=== PATIENT | male | born 1965 | race Caucasian/White ===

== ENCOUNTER 2020-10-06 10:19 | Day surgery (SDC) | payer MEDICAID ==
[~2020-10-06] VITALS: Ht 182.9 cm; Wt 92.0 kg
[~2020-10-06 10:19] MED LIST: BUPIVACAINE/PF 0.5% ONE; EPINEPHRINE 1 MG/ML, 1ML ONE; LIDOCAINE/PF 1%, 30ML ONE
[2020-10-06] MEDS ORDERED: CHLORHEXIDINE 15 ML UDC MM STA (10:30)
[2020-10-06] MEDS ORDERED: LACTATED RINGERS 1,000 ML IV SCH (10:30)
[2020-10-06 10:36] VITALS: BP 127/81
[2020-10-06] MEDS ORDERED: DEXAMETHASONE 4 MG/ML, 1ML ONE (12:33)
[2020-10-06] MEDS ORDERED: MIDAZOLAM 1 MG/ML, 2ML ONE (12:58)
[2020-10-06] MEDS ORDERED: FENTANYL PF 100 MCG/2ML ONE (12:58)
[2020-10-06] MEDS ORDERED: FENTANYL PF 100 MCG/2ML IV PRN (13:00)
[2020-10-06] MEDS ORDERED: ALBUTEROL SULFATE 2.5 MG/3 ML NPPB PRN (13:00)
[2020-10-06] MEDS ORDERED: PROMETHAZINE 25 MG/ML, 1ML IVPush PRN (13:00)
[2020-10-06] MEDS ORDERED: ACETAMINOPHEN 325 MG TABLET PO PRN (13:00)
[2020-10-06] MEDS ORDERED: hydrALAzine 20 MG/ML, 1ML IV PRN (13:00)
[2020-10-06] MEDS ORDERED: MIDAZOLAM 1 MG/ML, 2ML IV PRN (13:00)
[2020-10-06] MEDS ORDERED: OXYcodone 5 MG/5 ML ORAL.SOL UDC PO PRN (13:00)
[2020-10-06] MEDS ORDERED: MEPERIDINE/PF 25MG/0.5ML IVPush PRN (13:00)
[2020-10-06] MEDS ORDERED: HYDROmorphone 1 MG/ML, 1ML INJ IVPush PRN (13:00)
[2020-10-06] MEDS ORDERED: LABETALOL 5MG/ML, 20ML IV PRN (13:00)
[2020-10-06] MEDS ORDERED: BUPIVACAINE/PF 0.5% ONE (13:41)
[2020-10-06] MEDS ORDERED: LIDOCAINE-MPF 2% ,5ML ONE (13:42)
[2020-10-06] MEDS ORDERED: ONDANSETRON 2MG/ML, 2ML ONE (13:42)
[2020-10-06] MEDS ORDERED: PROPOFOL 10 MG/ML, 20ML ONE (13:42)
[2020-10-06] MEDS ORDERED: CEFAZOLIN 1,000 MG ONE (13:42)
[2020-10-06] MEDS ORDERED: ROCURONIUM 10MG/ML,5ML ONE (13:42)
[2020-10-06] MEDS ORDERED: NEOSTIGMINE 1 MG/ML, 10ML ONE (13:42)
[2020-10-06] MEDS ORDERED: GLYCOPYRROLATE 0.2MG/1ML, 5ML ONE (13:42)
== END 2020-10-06 16:40 | disposition home or self-care (01) ==
LOC: OUT 10:19
PROVIDERS: ATTEND Orthopaedic Surgery
DX: S46.011A Strain of muscle(s) and tendon(s) of the rotator cuff of right shoulder, initial encounter (principal); S43.431A Superior glenoid labrum lesion of right shoulder, initial encounter; M19.011 Primary osteoarthritis, right shoulder; M65.811 Other synovitis and tenosynovitis, right shoulder; M75.41 Impingement syndrome of right shoulder; M94.211 Chondromalacia, right shoulder; G89.18 Other acute postprocedural pain; Z20.822 Contact with and (suspected) exposure to COVID-19; Z79.1 Long term (current) use of non-steroidal anti-inflammatories (NSAID); X58.XXXA Exposure to other specified factors, initial encounter; Y93.89 Activity, other specified; Y92.89 Other specified places as the place of occurrence of the external cause; Y99.8 Other external cause status
CPT/HCPCS: 29823; 29824; 29826; 29827; 29828; 64415; C1713; J0171; J0690; J1100; J2250; J2405; J2704; J2710; J3010; U0003

== ENCOUNTER → 2021-03-01 | Outpatient (CLI) | payer MEDICAID ==
[~2021-03-01] MED LIST changes: +ACET-2065 PO; -BUPIVACAINE/PF 0.5% ONE; -EPINEPHRINE 1 MG/ML, 1ML ONE; -LIDOCAINE/PF 1%, 30ML ONE
== END | disposition home or self-care (01) ==
LOC: STAR 14:04
PROVIDERS: ATTEND Orthopaedic Surgery
DX: Z20.822 Contact with and (suspected) exposure to COVID-19 (principal); M75.121 Complete rotator cuff tear or rupture of right shoulder, not specified as traumatic; M25.511 Pain in right shoulder
CPT/HCPCS: U0003; U0005

== ENCOUNTER 2021-03-07 06:18 | Day surgery (SDC) | payer MEDICAID ==
[~2021-03-07] VITALS: Ht 182.9 cm; Wt 92.1 kg
[2021-03-07] MEDS ORDERED: ACETAMINOPHEN 325 MG TABLET PO PRN ×2 (07:00→10:30)
[2021-03-07] MEDS ORDERED: LIDOCAINE/PF 1%-EPI 1:200K, 30 ML ONE (07:04)
[2021-03-07] MEDS ORDERED: EPINEPHRINE 1 MG/ML, 1ML ONE (07:04)
[2021-03-07] MEDS ORDERED: BUPIVACAINE/PF 0.5% ONE (07:04)
[2021-03-07] MEDS ORDERED: FENTANYL PF 250 MCG/5ML ONE (07:35)
[2021-03-07] MEDS ORDERED: MIDAZOLAM 1 MG/ML, 2ML ONE (07:35)
[2021-03-07 07:48] VITALS: BP 110/70
[2021-03-07] MEDS ORDERED: CHLORHEXIDINE 15 ML UDC ONE (07:54)
[2021-03-07] MEDS ORDERED: LIDOCAINE-MPF 1%, 2ML ONE (07:54)
[2021-03-07] MEDS ORDERED: CHLORHEXIDINE 15 ML UDC PO ONE (08:00)
[2021-03-07] MEDS ORDERED: LACTATED RINGERS 1,000 ML IV SCH (08:00)
[2021-03-07] MEDS ORDERED: LIDOCAINE-MPF 1%, 2ML INFIL ONE (08:00)
[2021-03-07] MEDS ORDERED: OMEP20TA62 PO (08:10)
[2021-03-07] MEDS ORDERED: ROCURONIUM 10 MG/ML,10ML ONE (08:22)
[2021-03-07] MEDS ORDERED: DEXAMETHASONE 4 MG/ML, 1ML ONE (08:22)
[2021-03-07] MEDS ORDERED: PROPOFOL 10 MG/ML, 20ML ONE (08:22)
[2021-03-07] MEDS ORDERED: ONDANSETRON 2MG/ML, 2ML ONE (08:22)
[2021-03-07] MEDS ORDERED: CEFAZOLIN 1,000 MG ONE (08:22)
[2021-03-07] MEDS ORDERED: MEPERIDINE/PF 25MG/0.5ML IVPush PRN (10:30)
[2021-03-07] MEDS ORDERED: hydrALAzine 20 MG/ML, 1ML IV PRN (10:30)
[2021-03-07] MEDS ORDERED: FENTANYL PF 100 MCG/2ML IV PRN (10:30)
[2021-03-07] MEDS ORDERED: OXYcodone 5 MG/5 ML ORAL.SOL UDC PO PRN (10:30)
[2021-03-07] MEDS ORDERED: ALBUTEROL SULFATE 2.5 MG/3 ML NPPB PRN (10:30)
[2021-03-07] MEDS ORDERED: DIAZEPAM 5 MG/ML, 2ML IVPush PRN (10:30)
[2021-03-07] MEDS ORDERED: PROMETHAZINE 25 MG/ML, 1ML IV PRN (10:30)
[2021-03-07] MEDS ORDERED: HYDROmorphone 2 MG/ML, 1ML IVPush PRN (10:30)
[2021-03-07] MEDS ORDERED: KETOROLAC 30 MG/1 ML IV PRN (10:30)
[2021-03-07] MEDS ORDERED: LABETALOL 5MG/ML, 20ML IV PRN (10:30)
[2021-03-07] MEDS ORDERED: PROMETHAZINE 25 MG/ML, 1ML ONE (10:51)
[2021-03-07] MEDS ORDERED: MEPERIDINE/PF 25MG/ML,1ML ONE (11:02)
== END 2021-03-07 12:12 | disposition home or self-care (01) ==
LOC: OUT 06:18
PROVIDERS: ATTEND Orthopaedic Surgery
DX: Z47.2 Encounter for removal of internal fixation device (principal); S46.011A Strain of muscle(s) and tendon(s) of the rotator cuff of right shoulder, initial encounter; S43.431A Superior glenoid labrum lesion of right shoulder, initial encounter; M75.41 Impingement syndrome of right shoulder; M65.811 Other synovitis and tenosynovitis, right shoulder; Z79.1 Long term (current) use of non-steroidal anti-inflammatories (NSAID); X58.XXXA Exposure to other specified factors, initial encounter; Y93.89 Activity, other specified; Y92.89 Other specified places as the place of occurrence of the external cause; Y99.8 Other external cause status
CPT/HCPCS: 29823; 29826; 29827; 64415; C1713; J0171; J0690; J1100; J2175; J2250; J2405; J2550; J2704; J3010; J7120